=== PATIENT | female | born 1965 | race Caucasian/White ===

== ENCOUNTER → 2023-11-23 | Outpatient (CLI) | payer MEDICARE, SELFPAY ==
[2023-11-29 22:06] LABS: Age Gdln ACOG Testing 30-65 (.); HPV APTIMA, High Risk Negative (Negative)
[2023-11-30 18:57] LABS: HPV Reflexed? YES, CHARGE PATIENT
== END | disposition home or self-care (01) ==
LOC: LABSPEC 13:36
PROVIDERS: PCP Family Medicine; Visit Provider Family Medicine
DX: Z12.4 Encounter for screening for malignant neoplasm of cervix (principal)
CPT/HCPCS: 87624; 88175; G0145

== ENCOUNTER → 2023-12-04 | Outpatient (CLI) | payer BC, MEDICARE, SELFPAY ==
--- NOTE | 2023-12-04 10:02 | BI_ITS ---
MAMMOGRAPHY - BILATERAL SCREENING REASON FOR EXAM: Female, 58 years old. Routine annual screening examination. PERTINENT HISTORY: Non-contributory. TECHNIQUE: Digital bilateral breast oralia (3D mammographic acquisition) in the CC and MLO projections. 2-D mediolateral oblique (MLO) and craniocaudad (CC) views of both breasts were obtained. CAD: Full Field Digital Mammography with Computer Added Detection was performed. COMPARISON: Comparison is made with prior outside examination dated January 16, 2022. FINDINGS: Breast Composition: The breasts are heterogeneously dense, which may obscure small masses. I suspect a 1.1 cm x 1 cm nodular density in the retroareolar region of the right breast. Correlation with ultrasound is recommended. Stable small benign-appearing bilateral axillary lymph nodes. Stable calcified nodule in the anterior upper lateral aspect of the right breast. No other significant abnormalities are identified. BI/SCRN MAMM (CAD)W/ORALIA BILAT IMPRESSION: I suspect a 1.1 cm x 1 cm nodular density in the retroareolar region of the right breast as described. Correlation with ultrasound is recommended. ASSESSMENT CATEGORY: BIRADS Category 0: Incomplete. Need additional imaging evaluation. A letter regarding these results will be sent to the patient by the facility within 30 days. Approximately 10% of breast cancers are not detected by mammography. A normal mammogram should not delay biopsy of a clinically suspicious abnormality. [id number] Electronically Signed: Florentino Clarke MD at 8:22 EST ,
--- OUTSIDE RECORDS SUMMARY | 2023-12-04 17:04 | XMS RPT_ITS | CCD ---
Author Name Unknown Address [address] [place] [address] Organization [facility] Care Team Providers Care Rail Switchman Name Role Phone Pap Raul HOLBROOK Unavailable [phone] PAP, RAUL MARTIN Referring Unavailable PAP, RAUL MARTIN Admitting Unavailable PAP, RAUL MARTIN Admitting Unavailable PAP, RAUL MARTIN Referring Unavailable Angel Fletcher DO Primary Care Provider [phone] Mercedes Dodson DO Primary Care Provider MERCEDES DODSON Referring Unavailable MERCEDES DODSON Primary Care Unavailable FABIANO VALLADARES Primary Care Unavailable NAT SARGENT Attending Unavailhoda e Allergies Allergy Classification Reported Allergen(s) Allergy Type Date of Onset Reaction(s) Facility (1 source) Citalopram Drug Allergy 02-24-2005 [facility] (1 source) Penicillin Drug Allergy 07-01-2004 [facility] (1 source) Nitro Drug Allergy 11-24-2019 [facility] Medications Current Medications Medication Drug Class(es) Dates Sig (Normalized) Sig (Original) gabapentin 300 mg oral capsule (1 source) Anti-epileptic Agent Start: 10-11-2020 take 1 capsule by mouth every eight hours gabapentin (Neurontin) 300 mg capsule Take 1 capsule by mouth every 8 (eight) hours. 0 10/11/2020 Active glutamine/vits A,C,E/selenium (MULTIPLE VITAMINS-MINERALS PO) (1 source) Start: 11-24-2019 take 1 tablet by mouth once daily glutamine/vits A,C,E/selenium (MULTIPLE VITAMINS-MINERALS PO) Take 1 tablet by mouth 1 (one) time each day. 0 11/24/2019 Active ibuprofen 600 mg oral tablet (1 source) Nonsteroidal Anti-inflammatory Drug Start: 10-11-2020 ibuprofen (IBU) 600 mg tablet IBU 600 MG TABS 0 10/11/2020 Active Problems Active Problems Problem Classification Problem Date Documented Date Episodic/Chronic Anxiety disorders (1 source) Posttraumatic stress disorder; Translations: [Post-traumatic stress disorder, unspecified] Onset: 01-12-2005 11-23-2020 Chronic Asthma (1 source) Asthma; Translations: [Unspecified asthma, uncomplicated] Onset: 11-26-2009 11-23-2020 Chronic Disorders of lipid metabolism (1 source) Hyperlipidemia; Translations: [Hyperlipidemia, unspecified] Onset: 07-20-2006 11-23-2020 Chronic Esophageal disorders (1 source) Gastroesophageal reflux disease without esophagitis; Translations: [Gastro-esophageal reflux disease without esophagitis] Onset: 11-26-2009 11-23-2020 Chronic Other screening for suspected conditions (not mental disorders or infectious disease) (6 sources) Patient encounter status; Translations: [Encounter for screening for malignant neoplasm of cervix] Onset: 07-01-2004 11-23-2020 Episodic Spondylosis; intervertebral disc disorders; other back problems (1 source) 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; Translations: [Unspecified thoracic, thoracolumbar and lumbosacral intervertebral disc disorder] Onset: 07-26-2006 11-23-2020 Chronic Past or Other Problems Problem Classification Problem Date Documented Date Episodic/Chronic Bacterial infection; unspecified site (1 source) Methicillin resistant Staphylococcus aureus infection; Translations: [Methicillin resistant Staphylococcus aureus infection, unspecified site] Onset: 5 11-23-2020 Episodic Gastrointestinal hemorrhage (1 source) Rectal hemorrhage; Translations: [Hemorrhage of anus and rectum] Onset: 9 11-23-2020 Episodic Nonmalignant breast conditions (1 source) Mammographic microcalcification of breast; Translations: [Mammographic microcalcification found on diagnostic imaging of breast] Onset: 2 11-23-2020 Episodic Other connective tissue disease (1 source) Pain in left foot; Translations: [Pain in left foot] Onset: 1 11-23-2020 Episodic Other connective tissue disease (1 source) Trochanteric bursitis of left hip; Translations: [Trochanteric bursitis, left hip] Onset: 0 11-23-2020 Episodic Other liver diseases (1 source) Elevated levels of transaminase & lactic acid dehydrogenase; Translations: [Nonspecific elevation of levels of transaminase and lactic acid dehydrogenase (ldh)] Onset: 6 11-23-2020 Episodic Other non-traumatic joint disorders (1 source) Chronic pain of left upper limb; Translations: [Pain in left shoulder] Episodic Other non-traumatic joint disorders (2 sources) Hip pain; Translations: [Pain in left hip] Onset: 0 Episodic Other non-traumatic joint disorders (1 source) Pain in left knee; Translations: [Pain in left knee] Onset: 0 11-23-2020 Episodic Other skin disorders (1 source) Vesicular eczema; Translations: [Dyshidrosis [pompholyx]] Onset: 6 11-23-2020 Episodic Residual codes; unclassified (1 source) Insomnia; Translations: [Insomnia, unspecified] Onset: 5 11-23-2020 Episodic Spondylosis; intervertebral disc disorders; other back problems (2 sources) Lumbar radiculopathy; Translations: [Radiculopathy, lumbar region] Onset: 1 11-23-2020 Episodic Results Test Name Value Interpretation Reference Range Facil ity Vital Signs Date Time Vital Sign Value Performing Clinician Faci lity 12-14-2020 08:03-0500 Body height 161.3 cm Angel Muñoz MD Work Phone: [facility] 12-14-2020 08:03-0500 Body mass index (BMI) [Ratio] 34.18 kg/m2 Angel Muñoz MD Work Phone: [facility] 12-14-2020 08:03-0500 Body temperature 97 [degF] Angel Muñoz MD Work Phone: [facility] 12-14-2020 08:03-0500 Body weight 88.91 kg Angel Muñoz MD Work Phone: [facility] Encounters Encounter Date Encounter Type Care Provider Facility Start: 10-29-2023 End: 10-29-2023 ambulatory FABIANO GODOYAMBER Facility:[facility] Start: 01-16-2022 End: 01-17-2022 ambulatory MERCEDES DODSON [facility] Start: 01-16-2022 End: 01-16-2022 Evaluation and management of inpatient [facility] 4 [facility] Start: 01-16-2022 End: 01-16-2022 Subsequent hospital visit by physician [facility] 4 [facility] Procedures Date Procedure Procedure Detail Performing Clinician Start: 01-16-2022 Screening mammograph y bi 2-view breast inc cad Mercedes Dodson DO Work Phone: Start: 12-14-2020 Radex shoulder compl ete minimum 2 views Angel Muñoz MD Work Phone: Plan of Treatment Date Care Activity Detail Author Start: 2028 Pneumococcal Vaccine: 65+ Years (1 of 1 - PPSV23) Pneumococcal Vaccine: 65+ Years (1 of 1 - PPSV23) [facility] Start: 01-17-2024 Screening for malignant neoplasm of breast Breast Cancer Screening [facility] Start: 06-08-2022 Influenza vaccination Influenza Vaccine (Season Ended) [facility] Start: 06-27-2021 End: 06-27-2021 Patient encounter procedure 06/27/2021 Office Visit Lab Raul Ross MD [address] [place] [address] [facility] [place] Start: 06-08-2021 Influenza vaccination [facility] Start: 05-09-2021 End: 05-09-2021 Patient encounter procedure 05/09/2021 Office Visit Lab Raul Ross MD [address] [place] [address] [phone] [facility] [place] Start: 12-16-2020 End: 12-16-2020 ambulatory 12/16/2020 Treatment Physical Therapy Mingo Collazo, [facility] Start: 06-08-2020 Influenza vaccination Influenza Vaccine (#1) [facility] Start: 11-16-2019 Adolescent depression screening assessment Depression Screening [facility] Start: 11-16-2019 Hepatitis C screening Hepatitis C Screening [facility] Start: 11-16-2019 HIV screening HIV Screening [facility] Start: 11-16-2019 Lipid panel Cholesterol Screening (Lipid Panel) [facility] Start: 11-16-2019 Screening for malignant neoplasm of colon Colorectal Cancer Screening: Colonoscopy [facility] Start: 11-16-2019 Social Influencers of Health Screening Social Influencers of Health Screening [facility] Start: 2013 Administration of herpes zoster vaccine Zoster Vaccines (1 of 2) [facility] Start: 2013 Zoster Vaccines (1 of 2) Zoster Vaccines (1 of 2) [facility] Start: 09-30-2007 DTaP,Tdap,and Td Vaccines (2 - Td or Tdap) DTaP,Tdap,and Td Vaccines (2 - Td or Tdap) [facility] Start: 2003 Screening for malignant neoplasm of breast Mammogram [facility] Start: 10-28-1997 DTaP/Tdap/Td Vaccines (2 - Td) DTaP/Tdap/Td Vaccines (2 - Td) [facility] Start: 1993 HPV/Cotest HPV/Cotest [facility] Start: 1993 Screening for malignant neoplasm of cervix Cervical Cancer Screening [facility] Start: 1984 Screening for malignant neoplasm of cervix [facility] Start: 1981 Hepatitis C screening Hepatitis C Screening [facility] Start: 1978 HIV screening HIV Screening [facility] Start: 1975 COVID-19 Vaccine (1) COVID-19 Vaccine (1) [facility] Start: 1975 Depression screening using PHQ-9 (Patient Health Questionnaire 9) score Depression Screening (PHQ9) [facility] Start: 1969 Pneumococcal Vaccine: Pediatrics (0 to 5 Years) and At-Risk Patients (6 to 64 Years) (1 of 1 - PPSV23) Pneumococcal Vaccine: Pediatrics (0 to 5 Years) and At-Risk Patients (6 to 64 Years) (1 of 1 - PPSV23) [facility] Start: 1968 COVID-19 Vaccine (1) COVID-19 Vaccine (1) [facility] Start: 1966 History and physical examination, annual for health maintenance Wellness Visit [facility] Start: 1963 Hepatitis C screening Hepatitis C Screening [facility] Start: 1963 HIV screening HIV Screening [facility] Start: 1963 Screening for malignant neoplasm of cervix Pap Smear [facility] Start: 1963 Screening for malignant neoplasm of colon [facility] Start: 1963 Tetanus vaccination Tetanus: Every 10yrs [facility] End: 04-01-2022 SARS-CoV-2 (COVID-19) RdRp gene [Presence] in Respiratory specimen by SILVIA with probe detection COVID-19, Molecular Microbiology Routine Encounter for preprocedure screening laboratory testing for COVID-19 1 Occurrences starting 04/01/2021 until 04/01/2022 [facility] Immunizations Immunization Date Immunization Notes Care Provider Del dunn 09-30-1997 TD(adult) unspecifie d formulation Angel Muñoz MD Work Phone: [facility] Payers Date Payer Category Payer Unknown [id number] 2017 Private Health Insurance [id number] 2017 Private Health Insurance [id number] 1965 Unknown [id number] Social History Date Type Detail Facility [facility] Start: 1965 Sex Assigned At Not on file [facility] Tobacco smoking consumption unknown [facility] Start: 12-14-2020 [facility] Never smoker [facility] Start: 12-14-2020 Tobacco use and exposure Never used [facility] Start: 12-14-2020 Alcohol intake Lifetime non-d marco a (finding) [facility] Start: 11-23-2020 History SDOH Alcohol Frequency 1 [facility] Start: 01-06-2022 End: 01-16-2022 Exposure to SARS-CoV-2 (event) Not sure [facility] Progress note 10-29-2023 Note Date & Type Note Facility 10-29-2023 Note HNO ID: [id number] Author: NAT SARGENT OD Service: ? Author Type: CHIEF MATE Type: Progress Notes Filed: 10/29/2023 10:01 Note Text: ASSESSMENT/PLAN: 1. Type 2 diabetes mellitus without retinopathy (HCC) - ICD9: 250.00, ICD10: E11.9 (primary diagnosis) Examination shows no ocular diabetic complications today. Discussed need for optimal diabetes control to minimize chance of ocular complications. Advise patient to immediately report worsening in status or additional symptoms. Continue yearly dilated eye examinations. 2. Nuclear sclerotic cataract of both eyes - ICD9: 366.16, ICD10: H25.13 Mild cataract in both eyes. Well tolerated at this time. Discussed possible future affect on daily activities to watch for. Monitor as instructed. 3. Regular astigmatism, bilateral - ICD9: 367.21, ICD10: H52.223 5. Presbyopia - ICD9: 367.4, ICD10: H52.4 Continue to wear her glasses as desired. Recommended yearly exams. Nat Sargent, CELY I have confirmed and edited as necessary the relevant ophthalmic history, ROS, and the neuro exam findings as obtained by others. I have seen and examined this patient. [facility] History of Present illness Narrative 12-14-2020 Angel Muñoz MD - 12/14/2020 8:10 AM Alis Valera LPN - 12/14/2020 8:10 AM EST Note Date & Type Note Facility 12-14-2020 History of Present illness Narrative Patient status post left trochanteric bursectomy, March 10, 2020. She has had a stormy postsurgical course, there is no evidence of abductor rupture based on recent MRI of the left hip. She has had complaints that were consistent with L5 radiculopathy, there is some degeneration at L5-S1, but she has made some improvements with physical therapy. Patient had a change in symptoms as of September 25, 2020. Currently, she is much improved with physical therapy, feeling better. She has new c/o left shoulder/biceps pain. Patient denies trauma, but notes that she has been having trouble over the last month or 2. She says it hurts at the lateral aspect of her left shoulder, sometimes radiates down into her hand, with even some numb feelings at times. She has not done anything specific for rehabilitation for her shoulder. Past medical history is reviewed. Exam today shows patient be very pleasant, alert, oriented. She is walking well. Regarding the left shoulder, active abduction 150, forward flexion 150, internal rotation is roughly equal to the opposite side, approximately L1. External rotation is 70 degrees. Rotator cuff seems strong with internal and external rotation as well as initiation of abduction. Deltoid is 5 out of 5, positive impingement sign with abduction internal and external rotation. Neurovascular status appears to be intact in the left hand. She is nontender at the AC joint, she is tender at the biceps tendon. Left shoulder x-ray looks normal. Impression: Patient status post left trochanteric bursectomy, March 10, 2020. She has had a stormy postsurgical course, there is no evidence of abductor rupture based on recent MRI of the left hip. She has had complaints that were consistent with L5 radiculopathy, there is some degeneration at L5-S1, but she has made some improvements with physical therapy. Patient had a change in symptoms as of September 25, 2020. Currently, she is much improved with physical therapy, feeling better. She has findings consistent with left shoulder impingement/rotator cuff tendinitis. No obvious evidence of rotator cuff tear. Plan: Regarding the left shoulder, recommend an exercise program. Regarding her left hip, she seems to be doing well, and wants to return to work. She would like to go back for 5 hours/day x 1 month. We will have the folks in physical therapy teach her the home exercise program for rotator cuff tendinitis. I would have her follow-up with me in 1 month for review. NURSING INTAKE: Patient is here for f/u left hip. She states that it is going quite well. documented in this encounter [facility] Evaluation note Note Date & Type Note Facility documented in this encounter [facility] Evaluation note Note Date & Type Note Facility documented in this encounter [facility] Evaluation note Note Date & Type Note Facility documented in this encounter [facility] Evaluation note Note Date & Type Note Facility documented in this encounter [facility] Summary Purpose Family History No Family History Records FoundNo Family History Records FoundNo Family History Records FoundNo Family History Records FoundNo Family History Records Found Advance Directives No Advanced Directives Records FoundDocuments on File Type Date Recorded Patient Director Construction Services Expl anation Advance Directives and Livin g Will 04/01/2021 12:00 AM Documents on File Type Date Recorded Patient Director Construction Services Expl anation Advance Directives and Living Will Power of Global Climate Change Analyst Documents on File Type Date Recorded Patient Director Construction Services Expl anation Power of Global Climate Change Analyst Additional Source Comments INFORMATION SOURCE (unrecogn ized section and content) DATE CREATED AUTHOR AUTHOR'S ORGANIZ ATION 12/16/2020 [facility] DATE CREATED AUTHOR AUTHOR'S ORGANIZ ATION 06/27/2021 [facility] DATE CREATED AUTHOR AUTHOR'S ORGANIZ ATION 01/17/2022 [facility] DATE CREATED AUTHOR AUTHOR'S ORGANIZ ATION 10/29/2023 [facility] Care Teams (unrecognized sec tion and content) Rail Switchman Relationship Specialty Start Date End Date Mercedes Dodson DO [address] [place] [id number] PCP - General Family Medicine 01/04/22 Reason for Visit (unrecogniz ed section and content) Referral ID Status Reason Start Date Expiration Date V isits Requested Visits Authorized [id number] Authorized 01/03/2022 07/02/2022 1 1 FOR RECORDS PERTAINING TO PATIENTS WHO ARE OR HAVE BEEN ENROLLED IN A CHEMICAL DEPENDENCY/SUBSTANCEABUSE PROGRAM, SOME INFORMATION MAY BE OMITTED. This clinical summary was aggregated from multiple sources. Caution should be exercised in using it in the provision of clinical care. This summary normalizes information from multiple sources, and as a consequence, information in this document may materially change the coding, format and clinical context of patient data. In addition, data may be omitted in some cases. CLINICAL DECISIONS SHOULD BE BASED ON THE PRIMARY CLINICAL RECORDS. [facility]. provides no warranty or guarantee of the accuracy or completeness of information in this document.
== END | disposition home or self-care (01) ==
LOC: OPBI 10:00
PROVIDERS: PCP Family Medicine; Referring Provider Family Medicine; Visit Provider Family Medicine
DX: Z12.31 Encounter for screening mammogram for malignant neoplasm of breast (principal)
CPT/HCPCS: 77063; 77067

== ENCOUNTER → 2023-12-12 | Outpatient (CLI) | payer BC, SELFPAY ==
--- NOTE | 2023-12-12 10:44 | US_ITS ---
STUDY: ULTRASOUND BREAST - RIGHT REASON FOR EXAM: Female, 58 years old. Abnormal screening mammogram. TECHNIQUE: Axial and longitudinal images of the RIGHT breast were performed with a high resolution ultrasound transducer. # OF IMAGES: 22 COMPARISON: 12/04/2023 FINDINGS: RIGHT Breast: Heterogeneous background echotexture. Multiple longitudinal and transverse ultrasound images of the retroareolar right breast confirm an 8 mm oval parallel circumscribed anechoic mass with posterior enhancement consistent with a cyst corresponding to the mass seen on mammography.: US/Breast Limited Unilateral IMPRESSION: Ultrasound confirms an 8 mm cyst corresponding to the mass seen on mammography. ASSESSMENT CATEGORY: BIRADS Category 2: Benign. A letter regarding these results will be sent to the patient by the facility within 30 days. Electronically Signed: Brown Young MD at 17:51 EST ,
== END | disposition home or self-care (01) ==
LOC: OPUS 10:42
PROVIDERS: PCP Family Medicine; Referring Provider Family Medicine; Visit Provider Family Medicine
DX: N60.01 Solitary cyst of right breast (principal)
CPT/HCPCS: 76642

== ENCOUNTER 2024-03-11 06:34 | Day surgery (SDC) | payer MEDICARE, SELFPAY ==
[2024-03-11 06:56] VITALS: BP 166/104; PULSE 91; RESP 16; TEMP 36.8; O2SAT 97; BMI 30.4
[2024-03-11] MEDS: Lactated Ringers 1,000 ML 15 ML IV (07:00)
--- NOTE | 2024-03-11 08:00 | COLBX_PTH ---
PATIENT: CARTER FULTON LOC: EN U#:[id number] AGE/SX: 58/F ROOM: RE03/11/[address]: Dr. Mohsen Horton MD : 1965 BED: DIS: 03/11/2024 SPEC #: [id number] RECD: 03/11/24 10:49 STATUS: MANJEET VENTURA #: [id number] PARAM: 03/11/24 08:[address]: Mohsen Horton DEPT: SURGICAL PATHOLOGY RECD BY: Tera Carlisle ENTERED: 03/11/24 11:53 SP TYPE: COLON BX OTHR DR: Dr. Mariah Cordon MD Tissues: Cecum, NOS Procedures: Surgery Specimen Level IV HEADER OPERATION: Colonoscopy with polypectomy, EGD PRE-OP DIAGNOSIS: Acid reflux, positive colorectal cancer screening using Cologuard test TISSUE SUBMITTED: Cecal polyps MICROSCOPIC DIAGNOSIS Cecal polyps, polypectomy: Fragments of tubular adenoma. SJ/mr 03/12/2024 MICROSCOPIC DESCRIPTION Slides are reviewed. GROSS DESCRIPTION Received in fixative is one container labeled with the patient's name and designated Cecal polyp. The specimen consists of multiple irregular fragments of light galindo soft tissue that in aggregate measure 2.0 x 0.3 x 0.1 cm. The specimen is totally submitted in one cassette. / 03/11/2024 TC:1 CPT:53486
--- NOTE | 2024-03-11 08:01 | HP.PCM_ITS ---
History and Physical Date of Admission: 03/11/24 Intake Vital Signs 01/29/2409:48 Height 5 ft 3 in Weight: 180 lb BMI 31.8 BP 162/96 H Blood Pressure Location Rt brachial Position Sitting Respiration 18 Intake Visit Reasons: POSITIVE COLOGUARD Chief Complaint: positive cologuard Quill Machine Tender Required: No Is patient in pain?: No Allergies Penicillins Allergy (Mild, Verified 01/30/24 09:49) Othernitroglycerin Adverse Reaction (Mild, Verified 01/30/24 09:49) Low blood pressure Medications ibuprofen 200 mg capsule 200 mg PO Q6H PRN 01/30/24 [History] linagliptin 5 mg tablet (Tradjenta) 5 mg PO QDAY 01/30/24 [History] metformin 500 mg tablet,extended release 24 hr 500 mg PO BID 01/30/24 [History] multivitamin 1 tab PO DAILY 01/30/24 [History] triamcinolone acetonide 0.1 % topical cream 1 applic topical BID-TID 01/30/24 [History] PFSH Medical History (Updated 01/30/24 @ 09:47 by Shanna Issa) Acid reflux Arthritis Diabetes Positive colorectal cancer screening using Cologuard test Surgical History (Updated 01/30/24 @ 09:47 by Shanna Issa) S/P breast biopsy, bilateral S/P laparoscopic cholecystectomy Status post hip surgery Family History (Updated 01/30/24 @ 09:48 by Shanna Issa) Sister CVA (cerebral vascular accident)Mother Colon cancer DiabetesFather DiabetesBrother CVA (cerebral vascular accident) Social History (Updated 01/30/24 @ 09:48 by Shanna Issa) Smoking Status: Never smoker alcohol intake: never HPI HPI HPI: Patient is a 58-year-old female here with positive Cologuard. She had a Cologuard done recently which was normal. She discussed that she has had acid reflux but does not feel this all the time. Her last colonoscopy was over 20 years ago. She denies any abdominal pain in her lower abdomen or blood in her stool. ROS General General: No weight change, appetite, fatigue, colon cancer, breast cancer or weakness HEENT HEENT: No difficulty swallowing, eye injury, eye surgery, swollen glands or hoarseness Endo Endocrine: Yes diabetes mellitus; No thyroid disease, thyroid cancer, Hair loss, heat intolerance or cold intolerance Skin Skin: No rash or changing moles Breast Breast: No left breast lump, right breast lump, nipple discharge, breast pain, abnormal mammogram, abnormal US or breast enlargement Musc Musculoskeletal: Yes back problems and arthritis; No rheumatoid arthritis, gout or joint pain Cardio Cardiovascular: No murmur, pacemaker, heart disease, atrial fibrillation, high blood pressure, heart attack, heart stent, palpitations, shortness of breat with exertion or chest pain Psych Psychiatric: No depression, anxiety or hearing voices Resp Respiratory: No shortness of breath, No sleep apnea, No cough, No COPD, No asthma, No emphysema and No wheezing Gastro Gastrointestinal: No abdominal pain, No nausea or vomiting, No diarrhea, No constipation, No blood in stool, Yes acid reflux, No hemorrhoids, No ulcers, No gallbladder problem and No black,tarry stools Derrick Hematologic: No blood thinners, No blood disorders, No bleeding, No anemia and No blood clots Neuro Neurologic: No system reviewed and no additional complaints, except as documented, No as per HPI, No abnormal gait, No abnormal hearing, No abnormal movements, No abnormal speech, No behavioral changes, No burning sensations, No confusion, No convulsions, No disequilibrium, No dizziness, No localized weakness, No frequent falls, No headache(s), No lack of coordination, No loss of vision, No memory loss, No numbness, No other visual disturbances, No radicular pain, No restless legs, No sensory deficit, No syncope, No tingling, No tremor(s), No weakness and No other Exam Const General: cooperative Orientation: alert and oriented x3 [facility] Head: normal to inspection Neck Neck: normal visual inspection and full ROM Chest Chest palpation & inspection: normal inspection of the chest Resp Effort & Inspection: normal respiratory effort Auscultation: clear to auscultation bilaterally Cardio Rate: regular rate Rhythm: regular rhythm GI Inspection: non-distended Palpation: soft and nontender Skin General: no rashes or lesions noted Neuro General: patient alert and patient oriented x3 Extrem General: full ROM Psych Appearance: grossly normal Mental Status: mental status grossly normal Assessment and Plan Assessment and Plan (1) Acid reflux: Status: Acute (2) Positive colorectal cancer screening using Cologuard test: Status: Acute Orders: Orders Colonoscopy 02/22/24 EGD 02/22/24 Plan The patient had a positive Cologuard so she requires colonoscopy. I discussed this with her in detail. She also has a history of acid reflux for a long time and there is concern that there may be an ulcer that is slowly bleeding causing the positive Cologuard. I would like to perform an EGD at the same time and she is agreeable. I explained endoscopy in detail to the patient. I explained the risks including but not limited to stroke or heart attack with anesthesia, perforation of the GI tract, bleeding, infection. I explained that any of these could necessitate further emergency surgery. The patient understands and all questions were answered sufficiently. The patient wishes to proceed with procedure. Mohsen Horton MD Pager: [facility] [address] [place] [address] [address] [place] [address] Office: I have examined the patient and the H&P has been reviewed. There are no clinical changes since date of exam.
[2024-03-11 08:17] LABS: Bedside Glucose 137 mg/dL (74-106)
[2024-03-11 08:47] VITALS: BP 166/104; BP 94/64; PULSE 73; RESP 16; TEMP 36.1; O2SAT 93
--- NOTE | 2024-03-11 08:48 | OP.CCLET_ITS ---
03/11/2024 Mariah Cordon [place] [id number] [address] Re : Upper GI endoscopy procedure for Belem Austin Dear Dr. Cordon This procedure was performed on Monday, March 11, 2024. My impressions and recommendations are as follows: Impressions : - Grade II esophageal varices. - Normal stomach. - Normal examined duodenum. - No specimens collected. Recommendations : - Discharge patient to home. - Resume previous diet. - Continue present medications. My findings are described in the full procedure note, which is enclosed. If I can be of further assistance, please feel free to contact me at Doctor phone number(s): , Work: . Sincerely, Mohsen Horton MD 03/11/2024 8:47:09 AM This report has been signed electronically.
--- NOTE | 2024-03-11 08:48 | OP.EGD_ITS ---
Patient Name: Belem Austin Procedure Date: 03/11/2024 8:03 AM Date of : 1965 Age: 58 Procedure: Upper GI endoscopy Indications: Heartburn, Heme positive stool Providers: Mohsen Horton MD Medicines: Propofol per Anesthesia Patient Profile: This is a 58 year old female. Refer to note in patient chart for documentation of history and physical. Complications: No immediate complications. Estimated blood loss: Minimal. Procedure: Pre-Anesthesia Assessment: - Prior to the procedure, a History and Physical was performed, and patient medications and allergies were reviewed. The patient's tolerance of previous anesthesia was also reviewed. The risks and benefits of the procedure and the sedation options and risks were discussed with the patient. All questions were answered, and informed consent was obtained. Prior Anticoagulants: The patient has taken no anticoagulant or antiplatelet agents except for aspirin. After reviewing the risks and benefits, the patient was deemed in satisfactory condition to undergo the procedure. After obtaining informed consent, the endoscope was passed under direct vision. Throughout the procedure, the patient's blood pressure, pulse, and oxygen saturations were monitored continuously. The Endoscope was introduced through the mouth, and advanced to the third part of duodenum. The upper GI endoscopy was accomplished without difficulty. The patient tolerated the procedure well. Scope In: 8:13:18 AM Scope Out: 8:15:44 AM Total Procedure Duration Time 0 hours 2 minutes 26 seconds Findings: Grade II varices were found in the lower third of the esophagus. The stomach was normal. The examined duodenum was normal. Impression: - Grade II esophageal varices. - Normal stomach. - Normal examined duodenum. - No specimens collected. Recommendation: - Discharge patient to home. - Resume previous diet. - Continue present medications. Procedure Code(s): --- Professional --- 00419, Esophagogastroduodenoscopy, flexible, transoral; diagnostic, including collection of specimen(s) by brushing or washing, when performed (separate procedure) Diagnosis Code(s): --- Professional --- I85.00, Esophageal varices without bleeding R12, Heartburn R19.5, Other fecal abnormalities CPT copyright 2021 [employer]. All rights reserved. The codes documented in this report are preliminary and upon it security consultant review may be revised to meet current compliance requirements. Mohsen Horton MD 03/11/2024 8:47:09 AM This report has been signed electronically. Number of Addenda: 0 Note Initiated On: 03/11/2024 8:03 AM
--- NOTE | 2024-03-11 08:49 | OP.COLON_ITS ---
Patient Name: Belem Austin Procedure Date: 03/11/2024 8:18 AM Date of : 1965 Age: 58 Procedure: Colonoscopy Indications: Positive Cologuard test Providers: Mohsen Horton MD Medicines: Propofol per Anesthesia Patient Profile: This is a 58 year old female. Refer to note in patient chart for documentation of history and physical. Last Colonoscopy: more than 10 years ago. Complications: No immediate complications. Estimated blood loss: Minimal. Procedure: Pre-Anesthesia Assessment: - Prior to the procedure, a History and Physical was performed, and patient medications and allergies were reviewed. The patient's tolerance of previous anesthesia was also reviewed. The risks and benefits of the procedure and the sedation options and risks were discussed with the patient. All questions were answered, and informed consent was obtained. Prior Anticoagulants: The patient has taken no anticoagulant or antiplatelet agents except for aspirin. After reviewing the risks and benefits, the patient was deemed in satisfactory condition to undergo the procedure. After I obtained informed consent, the scope was passed under direct vision. Throughout the procedure, the patient's blood pressure, pulse, and oxygen saturations were monitored continuously. The colonoscope was introduced through the anus and advanced to the cecum, identified by appendiceal orifice and ileocecal valve. The colonoscopy was performed without difficulty. The patient tolerated the procedure well. The quality of the bowel preparation was good. The ileocecal valve, appendiceal orifice, and rectum were photographed. Scope In: 8:19:34 AM Scope Withdrawal Time 0 hours 10 minutes 34 seconds Scope Out: 8:40:31 AM Total Procedure Duration Time 0 hours 20 minutes 57 seconds Findings: Two polyps were found in the cecum. The polyps were small in size. These polyps were removed with a hot snare. Resection and retrieval were complete. The exam was otherwise without abnormality on direct and retroflexion views. Impression: - Two small polyps in the cecum, removed with a hot snare. Resected and retrieved. - The examination was otherwise normal on direct and retroflexion views. Recommendation: - Discharge patient to home. - Resume previous diet. - Continue present medications. - Await pathology results. - Repeat colonoscopy in 5 years for surveillance based on pathology results. Procedure Code(s): --- Professional --- 66849, Colonoscopy, flexible; with removal of tumor(s), polyp(s), or other lesion(s) by snare technique Diagnosis Code(s): --- Professional --- D12.0, Benign neoplasm of cecum R19.5, Other fecal abnormalities CPT copyright 2021 [employer]. All rights reserved. The codes documented in this report are preliminary and upon skilled nursing case manager review may be revised to meet current compliance requirements. Mohsen Horton MD 03/11/2024 8:48:48 AM This report has been signed electronically. Number of Addenda: 0 Note Initiated On: 03/11/2024 8:18 AM
--- NOTE | 2024-03-11 08:49 | OP.CCLET_ITS ---
03/11/2024 Mariah Cordon [place] [address] [address] Re : Colonoscopy procedure for Belem Austin Dear Dr. Cordon This procedure was performed on Monday, March 11, 2024. My impressions and recommendations are as follows: Impressions : - Two small polyps in the cecum, removed with a hot snare. Resected and retrieved. - The examination was otherwise normal on direct and retroflexion views. Recommendations : - Discharge patient to home. - Resume previous diet. - Continue present medications. - Await pathology results. - Repeat colonoscopy in 5 years for surveillance based on pathology results. My findings are described in the full procedure note, which is enclosed. If I can be of further assistance, please feel free to contact me at Doctor phone number(s): , Work: . Sincerely, Mohsen Horton MD 03/11/2024 8:48:48 AM This report has been signed electronically.
[2024-03-11 08:50] VITALS: BP 166/104; BP 95/64; PULSE 71; RESP 16; O2SAT 92
[2024-03-11 08:55] VITALS: BP 166/104; BP 97/67; PULSE 70; RESP 18; O2SAT 92
[2024-03-11 09:00] VITALS: BP 111/69; BP 166/104; PULSE 65; RESP 16; TEMP 36.6; O2SAT 97
[2024-03-11 09:18] VITALS: BP 166/104
== END 2024-03-11 09:25 | disposition home or self-care (01) ==
LOC: EN 06:37 → AC 06:38
PROVIDERS: PCP Family Medicine; Referring Provider Family Medicine; Visit Provider Surgery
PROC: 0DJD8ZZ Inspection of Lower Intestinal Tract, Via Natural or Artificial Opening Endoscopic (ICD-10-PCS; CPT 45378; principal; 2024-03-11 07:55)
DX: Z12.11 Encounter for screening for malignant neoplasm of colon (principal); I85.00 Esophageal varices without bleeding; E11.9 Type 2 diabetes mellitus without complications; D12.0 Benign neoplasm of cecum; K21.9 Gastro-esophageal reflux disease without esophagitis; Z80.0 Family history of malignant neoplasm of digestive organs; Z79.84 Long term (current) use of oral hypoglycemic drugs
CPT/HCPCS: 45385; 43235; 82962; 88305; J7120; J2405

== ENCOUNTER → 2024-03-13 | Outpatient (CLI) | payer MEDICARE, SELFPAY ==
--- NOTE | 2024-03-13 11:30 | RAD_ITS ---
STUDY: X-RAY - LEFT SHOULDER REASON FOR EXAM: Female, 58 years old. SHOULDER PAIN AND WEAKNESS TECHNIQUE: 4 view(s) of the shoulder. COMPARISON: None. FINDINGS: Mildly narrowed glenohumeral articulation. Normal acromioclavicular joint. Normal acromion. Normal humeral head and visualized proximal humerus. Tiny foci of periarticular calcification likely representing calcific tendinitis. Normal visualized pulmonary apex. RAD/Shoulder min 2 Views IMPRESSION: No acute fracture or dislocation. Mild degenerative change and calcific tendinitis Electronically Signed: Jaquan Galeana MD at 18:09 EDT ,
== END | disposition home or self-care (01) ==
LOC: MTRAD 11:25
PROVIDERS: PCP Family Medicine; Referring Provider Family Medicine; Visit Provider Family Medicine
DX: M67.912 Unspecified disorder of synovium and tendon, left shoulder (principal)
CPT/HCPCS: 73030

== ENCOUNTER → 2024-04-04 | Outpatient (CLI) | payer MEDICARE, SELFPAY ==
--- NOTE | 2024-04-04 09:31 | US_ITS ---
STUDY: ABDOMINAL ULTRASOUND - ELASTOGRAPHY REASON FOR VISIT: Female, 59 years old. Elevated liver function tests. TECHNIQUE: Liver stiffness measurements were obtained on a [employer] RS 85 ultrasound machine using a CA 1-7 probe following the U guidelines. 3 measurements were obtained using a 2-D-SWE method. TheIQR/M was 12% suggesting a quality data set. TECHNICAL QUALITY: Adequate. COMPARISON: FINDINGS: Liver: There is no demonstrated mass lesion. Median liver stiffness measured 9.9 kPa. Abdomen: There is no demonstrated mass lesion. US/ABD Limited w/ Elastography IMPRESSION: Liver stiffness measures 9.9 kPa compatible with F2-F3 Metavir score. Electronically Signed: Brown Young MD at 12:20 EDT ,
== END | disposition home or self-care (01) ==
PROVIDERS: PCP Family Medicine; Referring Provider Family Medicine; Visit Provider Family Medicine
DX: I85.00 Esophageal varices without bleeding (principal)
CPT/HCPCS: 76705; 76981

== ENCOUNTER → 2024-07-31 | Outpatient (CLI) | payer MEDICARE, SELFPAY ==
--- NOTE | 2024-07-31 08:46 | US_ITS ---
STUDY: ABDOMINAL ULTRASOUND - RIGHT UPPER QUADRANT; ELASTOGRAPHY REASON FOR VISIT: Female, 59 years old. Liver fibrosis. TECHNIQUE: Ultrasound evaluation of the right upper quadrant was performed with real-time and static juan-scale imaging. Point quantification shear wave elastography was performed ([employer]). TECHNICAL QUALITY: Adequate. COMPARISON: Comparison is made with prior study dated April 04, 2024. FINDINGS: Liver: The liver measures 16.7 cm. There is a heterogeneous echogenicity of the liver. Nodular contour of the liver. The bile ducts are within normal limits. There is hepatic color flow. The direction of portal flow is hepatopetal. There is no demonstrated mass lesion. Median liver stiffness measured 8.8 kPa. Gallbladder: The patient is status post cholecystectomy. Common Bile Duct (C.B.D.): The common bile duct measures 4.6 mm. Pancreas: There is increased echogenicity of the pancreas. There is no demonstrated pancreatic mass or cyst. Right Kidney: Normal size of the right kidney. The right kidney measures 10.6 cm x 5.5 cm x 4.4 cm. Normal renal cortex. The right cortex measures 1.0 cm. There is no demonstrated renal mass or cyst. There is no right hydronephrosis. IMPRESSION: 1. Liver stiffness measures 8.8 kPa compatible with F2-F3 (Mild to moderate liver fibrosis) Metavir score. Electronically Signed: Florentino Clarke MD at 13:39 EDT , STUDY: ABDOMINAL ULTRASOUND - LEFT UPPER QUADRANT REASON FOR EXAM: Female, 59 years old. Liver fibrosis, esophageal varices -- Including spleen. TECHNIQUE: Transabdominal ultrasound was performed with real-time and static juan scale imaging. TECHNICAL QUALITY: Adequate. COMPARISON: None. FINDINGS: Spleen: There is splenomegaly. The spleen measures 12.2 cm x 4.9 cm x 4.8 cm. US/ABD Limited w/ Elastography IMPRESSION: Mild splenomegaly. Electronically Signed: Florentino Clarke MD at 13:41 EDT ,
--- NOTE | 2024-07-31 08:46 | ECHOD_ITS ---
Reason For Study: MURMUR Procedure This was a 2D Doppler, Color Flow transthoracic echocardiogram. Exam performed in department. Left Ventricle Normal LV size. Left ventricular systolic function is normal. The left ventricular ejection fraction is 65 %. Stage 1 diastolic dysfunction. No regional wall motion abnormalities noted. Right Ventricle Normal RV size. Normal systolic function. Atria Normal left atrium. Normal right atrium. Mitral Valve Normal mitral valve. Tricuspid Valve Normal tricuspid valve. Aortic Valve Trisinus/trileaflet aortic valve. Mild (1+) aortic valve insufficiency. Pulmonic Valve Normal pulmonic valve. Great Vessels Normal aortic root. The pulmonary artery is normal size. Normal inferior vena cava. Pericardium/Pleural No pericardial effusion. MMode/2D Measurements & Calculations LVIDd: 3.6 cm IVSd: 1.3 cm LVOT diam: 1.7 cm LVIDs: 2.1 cm LVPWd: 1.00 cm LVOT area: 2.2 cm2 FS: 42.9 % Ao root diam: 3.4 cm LAV(MOD-bp): 36.5 ml LVAd ap4: 21.5 cm2 LAV(MOD-bp) Indexed: 20.4 ml/m2 LVLd ap4: 7.0 cm LAV(MOD-sp2): 39.4 ml EDV(MOD-sp4): 54.7 ml LAV(MOD-sp4): 31.9 ml EDV(sp4-el): 56.1 ml LVAs ap4: 10.6 cm2 LVLs ap4: 5.8 cm ESV(MOD-sp4): 16.0 ml ESV(sp4-el): 16.5 ml EF(MOD-sp4): 70.8 % EF(sp4-el): 70.5 % SV(MOD-sp4): 38.7 ml SV(sp4-el): 39.6 ml LA A4 area: 13.3 cm2 LA dimension(2D): 3.7 cm RA A4 area: 9.9 cm2 TAPSE: 2.4 cm Time Measurements MV dec time: 0.26 sec Doppler Measurements & Calculations MV E max rod: 68.4 cm/sec Lat Peak E' Rod: 6.3 cm/sec Med Peak E' Rod: 4.0 cm/sec MV A max rod: 102.8 cm/sec E/E' lat: 10.9 E/E' med: 17.2 MV E/A: 0.67 MV V2 max: 111.4 cm/sec Ao V2 max: 135.1 cm/sec MV max P.0 mmHg MV dec slope: 279.6 cm/sec2 Ao max P.3 mmHg MV V2 mean: 63.8 cm/sec Ao V2 mean: 89.4 cm/sec MV mean P.9 mmHg Ao mean P.7 mmHg MV V2 VTI: 26.2 cm Ao V2 VTI: 29.4 cm AV (velocity ratio): 0.79 MVA(VTI): 1.9 cm2 CAPRI(I,D): 1.7 cm2 CAPRI(V,D): 1.6 cm2 AI max rod: 403.9 cm/sec LV V1 max: 97.0 cm/sec SV(LVOT): 50.6 ml AI max P.3 mmHg LV V1 max P.8 mmHg LV V1 mean P.9 mmHg AI dec slope: 236.9 cm/sec2 LV V1 mean: 64.0 cm/sec AI P1/2t: 499.4 msec LV V1 VTI: 23.1 cm PA V2 max: 88.9 cm/sec PA V2 mean: 63.6 cm/sec ECHO/Echo Complete Interpretation Summary Normal LV size. Left ventricular systolic function is normal. The left ventricular ejection fraction is 65 %. Stage 1 diastolic dysfunction. Mild (1+) aortic valve insufficiency. Ordering Physician: Aidan James Referring Physician: Aidan James Performed By: Lidia Cohen RCS
== END | disposition home or self-care (01) ==
LOC: US 08:43
PROVIDERS: PCP Family Medicine; Referring Provider Internal Medicine; Visit Provider Internal Medicine
DX: R01.1 Cardiac murmur, unspecified (principal); I85.00 Esophageal varices without bleeding; E11.9 Type 2 diabetes mellitus without complications; K76.0 Fatty (change of) liver, not elsewhere classified; K21.9 Gastro-esophageal reflux disease without esophagitis; R12 Heartburn; E78.00 Pure hypercholesterolemia, unspecified
CPT/HCPCS: 76705; 76981; 93306

== ENCOUNTER → 2024-12-09 | Outpatient (CLI) | payer MEDICARE, SELFPAY ==
--- NOTE | 2024-12-09 10:36 | RAD_ITS ---
EXAM: XR Left Shoulder Complete, 2 or More Views CLINICAL INDICATION: TECHNIQUE: Two or more views of the left shoulder. COMPARISON: No relevant prior studies available. FINDINGS: BONES/JOINTS: Mild degenerative change of the acromioclavicular joint. No acute fracture. No dislocation. SOFT TISSUES: Unremarkable. RAD/Shoulder min 2 Views IMPRESSION: Degenerative changes as above. Reading Location: [facility]
== END | disposition home or self-care (01) ==
LOC: MTRAD 10:35
PROVIDERS: PCP Family Medicine; Referring Provider Family Medicine; Visit Provider Family Medicine
DX: M75.102 Unspecified rotator cuff tear or rupture of left shoulder, not specified as traumatic (principal)
CPT/HCPCS: 73030

== ENCOUNTER → 2025-01-12 | Outpatient (CLI) | payer MEDICARE, SELFPAY ==
--- NOTE | 2025-01-12 06:55 | CT_ITS ---
EXAM: CT Abdomen With Intravenous Contrast CLINICAL INDICATION: LUQ ABD PAIN, CA19-9 ELEVATED, NODULAR LIVER IN US TECHNIQUE: Axial computed tomography images of the abdomen with intravenous contrast. This CT exam was performed using one or more of the following dose reduction techniques: automated exposure control, adjustment of the mA and/or kV according to patient size, and/or use of iterative reconstruction technique. COMPARISON: No relevant prior studies available. FINDINGS: LUNG BASES: Unremarkable. No mass. No consolidation. MEDIASTINUM: Small esophageal hiatal hernia. LIVER: Fatty liver with hepatic surface irregularity suggesting early cirrhosis. No discrete hepatic mass. Clinical correlation is recommended. GALLBLADDER AND BILE DUCTS: Gallbladder is surgically absent. No ductal dilation. PANCREAS: Unremarkable. No mass. No ductal dilation. SPLEEN: Unremarkable. No splenomegaly. ADRENALS: Unremarkable. No mass. KIDNEYS AND URETERS: Unremarkable. No solid mass. No hydronephrosis. STOMACH AND BOWEL: Fecal retention in the colon consistent with constipation. No obstruction. No mucosal thickening. INTRAPERITONEAL SPACE: Unremarkable. No free air. No significant fluid collection. BONES/JOINTS: No acute fracture. No dislocation. SOFT TISSUES: Umbilical hernia containing fat. VASCULATURE: Scattered calcified atherosclerotic disease of aorta. No abdominal aortic aneurysm. LYMPH NODES: Unremarkable. No enlarged lymph nodes. CT/Abdomen WITH IV Contrast IMPRESSION: 1. Fatty liver with hepatic surface irregularity suggesting early cirrhosis. No discrete hepatic mass. Clinical correlation is recommended. 2. Fecal retention in the colon consistent with constipation. 3. Umbilical hernia containing fat. 4. Small esophageal hiatal hernia. Reading Location: [facility]
[2025-01-12 07:10] LABS: CREATININE FINGERSTICK < 1.0 mg/dL (0.55-1.02); EGFR FINGERSTICK > 60.0000 mL/min (>60)
== END | disposition home or self-care (01) ==
LOC: CT 06:42
PROVIDERS: PCP Family Medicine; Referring Provider Internal Medicine; Visit Provider Internal Medicine
DX: K76.0 Fatty (change of) liver, not elsewhere classified (principal); I85.00 Esophageal varices without bleeding; R97.8 Other abnormal tumor markers
CPT/HCPCS: 74160; Q9967

== ENCOUNTER → 2025-02-25 | Outpatient (CLI) | payer MEDICARE, SELFPAY ==
--- NOTE | 2025-02-25 09:43 | US_ITS ---
PROCEDURE: EXT NON VASC LIMITED/SOFT TISS 02/25/2025 REASON FOR EXAM: BENIGN LIPOMATOUS NEOPLASM/LEFT ARM TECHNIQUE: Ultrasound targeted to the palpable abnormality at the level of the forearm.. COMPARISON: None FINDINGS: The palpable lump corresponds to a 4.5 mm x 5 mm dilated venous structure. No clot is seen within it. Incidental note is made of a 2 mm x 2 mm x 2 mm lipoma in the upper arm. US/Ext Non Vasc Limited/Soft Tiss IMPRESSION: The palpable lump corresponds to a 4.5 mm x 5 mm dilated venous structure. Incidental note is made of a 2 mm x 2 mm x 2 mm lipoma in the upper arm. Reading Location: [place] [address]
[2025-02-25 12:52] LABS: International Normalized Ratio 0.9; Prothrombin Time (Protime)PT. 12.8 SECONDS (11.7-14.9)
[2025-02-25 12:54] LABS: Absolute Lymphocyte Count 1.52 X10^3/uL (0.83-4.51); Absolute Neutrophil Count 2.7 X10^3/uL (2.0-7.7); Basophil# 0.02 X10^3/uL; Basophil% 0.4 % (0-1); Eosinophil# 0.08 X10^3/uL; Eosinophils% 1.7 % (0-5); Hematocrit 45.7 % (37-47); Hemoglobin 14.8 g/dL (12.0-15.0); Lymphocyte # 1.52 X10^3/ul (0.83-4.51); Lymphocyte % 32.3 % (19-41); Mean Corp Hgb Conc 32.4 g/dL (32-36); Mean Corpuscular Hgb 29.5 pg (27.0-32.0); Mean Platelet Vol. 10.9 fl (6.2-12.0); Monocyte% 8.5 % (0-10); NRBC Flagged by Analyzer 0 % (0-5); Neutrophil # 2.67 X10^3/uL (2.7-7.7); Neutrophil % 56.9 % (47-70); Platelet Count 159 K/mm3 (150-450); RBC Distribution Width CV 12.3 % (11.6-14.6); Red Blood Count 5.02 M/mm3 (4.2-5.4); White Blood Count 4.7 K/mm3 (4.4-11.0)
[2025-02-25 14:14] LABS: Hemoglobin A1c 10.3 % (<=5.6)
[2025-02-25 15:10] LABS: AST(SGOT) 62 U/L (<=31); Alanine Aminotransfer ALT/SGPT 48 U/L (<=34); Albumin, Serum 4.1 g/dL (3.4-4.8); Alkaline Phosphatase 182 U/L (35-104); Anion Gap 11 (5-15); BUN 11 mg/dL (4-19); BUN/Creat Ratio 15.3 RATIO (10-20); Bilirubin, Direct 0.19 mg/dL (0.00-0.30); Calcium,Total 9.5 mg/dL (7.6-11.0); Carbon Dioxide 25.5 mmol/L (21.0-32.0); Chloride 101 mmol/L (98-108); Cholesterol 243 mg/dL (<=200); Creatinine, Serum 0.72 mg/dL (0.70-1.20); EST Glomerular Filtration Rate 95 (>60); Ferritin 518 ng/mL (22-378); Globulin 4.1 g/dL (2.2-4.2); Glucose 201 mg/dL (70-99); High Density Lipoprotein 43 mg/dL; Low Density Lipoprotein Calc. 143 mg/dL; Potassium 4.1 mmol/L (3.3-5.1); Protein, Total 8.2 g/dL (5.9-8.4); Sodium Level 138 mmol/L (133-145); Total Bilirubin 0.56 mg/dL (0.00-1.30); Triglycerides 284 mg/dL; Very Low Density Lipoprotein 57 mg/dL (5-40); cholesterol:hdl ratio screen 5.64
[2025-02-25 16:06] LABS: CRP 3.23 mg/L (0.0-3.0); Iron 105 ug/dL (50-170); Iron Binding Capacity,Total 306 ug/dL (250-450); Iron Binding Capacity,Unsat 201 ug/dL (228-428)
[2025-02-27 16:09] LABS: Alkaline Phosphatase, Serum 195 IU/L (44-121); Bone Fraction 45 % (14-68); Carbohydrate AG 19-9 94 U/mL (0-35); GGTP 72 IU/L (0-60); Intestinal Fraction 37 % (0-18); Liver Fraction 18 % (18-85)
== END | disposition home or self-care (01) ==
PROVIDERS: Internal Medicine; PCP Family Medicine; Referring Provider Family Medicine; Visit Provider Family Medicine
DX: D17.9 Benign lipomatous neoplasm, unspecified (principal); E11.9 Type 2 diabetes mellitus without complications; K76.89 Other specified diseases of liver; K76.0 Fatty (change of) liver, not elsewhere classified; R97.8 Other abnormal tumor markers; R63.4 Abnormal weight loss; E78.5 Hyperlipidemia, unspecified
CPT/HCPCS: 36415; 76882; 80053; 80061; 82248; 82728; 82977; 83036; 83540; 83550; 84075; 84080; 84439; 84443; 85025; 85610; 86140; 86301